=== PATIENT | male | born 1990 | race Caucasian/White ===

== ENCOUNTER 2018-03-10 19:27 | Emergency (ER) | payer BC, OTHER ==
[2018-03-10] MEDS ORDERED: KETOROLAC 30 MG/ML INJ ONE (20:06)
--- NOTE | 2018-03-10 20:08 | ER ---
Nurse's Notes [facility] Name: Bran Low Age: 27 yrs Sex: Male : 1990 Arrival Date: 03/10/2018 Time: 19:29 Bed 8 Private MD: Diagnosis: Acute lumbar strain Presentation: 03/10 19:38 Presenting complaint: Patient states: he was laying on the bed with his son and his son aa1 started to fall and he twisted his back trying to catch him. C/O low back pain in the center of his lumbar area. Reports pulling his back 2 months prior and believes he re-injured it. Reports the pain is so intense he can't walk. Transition of care: patient was not received from another setting of care. Onset of symptoms was March 10, 2018. Risk Assessment: Do you want to hurt yourself or someone else? Patient reports no desire to harm self or others. Initial Sepsis Screen: Does the patient meet any 2 criteria? HR > 90 bpm. Does the patient have a suspected source of infection? No. Patient's initial sepsis screen is negative. Care prior to arrival: None. 19:38 Method Of Arrival: Wheelchair aa1 19:38 Acuity: CHRISTOS 3 aa1 Historical: - Allergies: 19:44 No Known Allergies; aa1 - Home Meds: 19:44 None [Active]; aa1 - PMHx: 19:44 None; aa1 - PSHx: 19:44 None; aa1 - Immunization history:: Last tetanus immunization: up to date 2016. - Social history:: Smoking status: Patient/guardian denies using tobacco. - Ebola Screening: : No symptoms or risks identified at this time. Screenin:45 Abuse screen: Denies threats or abuse. Denies injuries from another. Nutritional aa1 screening: No deficits noted. Tuberculosis screening: No symptoms or risk factors identified. Fall Risk None identified. Assessment: 19:45 General: Appears in no apparent distress. uncomfortable, Behavior is calm, cooperative, aa1 appropriate for age. Pain: Complains of pain in lumbar area Pain does not radiate. Pain currently is 7 out of 10 on a pain scale. Quality of pain is described as sharp, Pain began suddenly. Neuro: Level of Consciousness is awake, alert, obeys commands, Oriented to person, place, time, situation. Respiratory: Airway is patent Respiratory effort is even, unlabored, Respiratory pattern is regular, symmetrical. GI: No signs and/or symptoms were reported involving the gastrointestinal system. : No signs and/or symptoms were reported regarding the genitourinary system. EENT: No signs and/or symptoms were reported regarding the EENT system. Derm: Skin is intact, is healthy with good turgor, Skin is pink, warm \T\ dry. Musculoskeletal: Circulation, motion, and sensation intact. Capillary refill < 3 seconds, Range of motion: intact in all extremities. 20:05 Reassessment: Patient appears in no apparent distress at this time. Patient is alert, aa1 oriented x 3, equal unlabored respirations, skin warm/dry/pink. Pt for d/c. Will d/c once shot time complete. 20:15 Reassessment: PT D/C HOME AMBULATORY WITH FAMILY, DX WITH ACUTE LUMBAR STRAIN. bp Vital Signs: 19:44 BP 168 / 108; Pulse 101; Resp 20; Temp 98.5; Pulse Ox 99% on R/A; Weight 117.93 kg; aa1 Height 5 ft. 11 in. (180.34 cm); Pain 7/10; 20:16 BP 171 / 85; Pulse 100; Resp 14; Pulse Ox 100% ; bp 19:44 Body Mass Index 36.26 (117.93 kg, 180.34 cm) aa1 ED Course: 19:29 Patient arrived in ED. al2 19:38 Tiffany Roche, JOANNE is Primary Nurse. aa1 19:39 Rahul Arthur MD is Attending Physician. pkl 19:43 Triage completed. aa1 19:44 Arm band placed on right wrist. Patient placed in an exam room, on a stretcher. aa1 19:45 Patient has correct armband on for positive identification. Bed in low position. Call aa1 light in reach. Pulse ox on. NIBP on. 20:02 Andrea Alford MD is Referral Physician. pkl 20:17 No provider procedures requiring assistance completed. Patient did not have IV access bp during this emergency room visit. Administered Medications: 20:05 Drug: TORadol 60 mg Route: IM; Site: right deltoid; aa1 20:15 Follow up: Response: Pain is decreased bp Outcome: 20:03 Discharge ordered by . pkl 20:17 Discharged to home ambulatory, with family. bp 20:17 Condition: stable 20:17 Discharge instructions given to patient, Instructed on discharge instructions, follow up and referral plans. medication usage, Demonstrated understanding of instructions, follow-up care, medications, Prescriptions given X 2. 20:17 Patient left the ED. bp Signatures: Tiffany Roche RN RN aa1 Rahul Arthur MD MD pkl Peltier, Brian, RN RN bp Love, Angelica al2
--- NOTE | 2018-03-10 20:08 | EDPHYS ---
Physician Documentation [facility] Name: Bran Low Age: 27 yrs Sex: Male : 1990 Arrival Date: 03/10/2018 Time: 19:29 Bed 8 Private MD: ED Physician Rahul Arthur HPI: 03/10 19:56 This 27 yrs old Male presents to ER via Wheelchair with complaints of Back pkl Pain. 19:56 The patient presents with pain that is acute. The symptoms are located in the low back. pkl Onset: The symptoms/episode began/occurred just prior to arrival, 1 hour(s) ago. The pain does not radiate. Associated signs and symptoms: The patient has no apparent associated signs or symptoms. The problem was sustained Twisted his back trying to catch his son from falling. Historical: - Allergies: 19:44 No Known Allergies; aa1 - Home Meds: 19:44 None [Active]; aa1 - PMHx: 19:44 None; aa1 - PSHx: 19:44 None; aa1 - Immunization history:: Last tetanus immunization: up to date 2017. - Social history:: Smoking status: Patient/guardian denies using tobacco. - Ebola Screening: : No symptoms or risks identified at this time. ROS: 19:56 Eyes: Negative for injury, pain, redness, and discharge, ENT: Negative for injury, pkl pain, and discharge, Neck: Negative for injury, pain, and swelling, Cardiovascular: Negative for chest pain, palpitations, and edema, Respiratory: Negative for shortness of breath, cough, wheezing, and pleuritic chest pain, Abdomen/GI: Negative for abdominal pain, nausea, vomiting, diarrhea, and constipation. 19:56 Back: Positive for pain at rest, of the lower back. 19:56 : Negative for urinary symptoms. 19:56 MS/extremity: Negative for acute changes. 19:56 Skin: Negative for rash. 19:56 Neuro: Negative for altered mental status. Exam: 19:56 Head/Face: Normocephalic, atraumatic. Eyes: Pupils equal round and reactive to light, pkl extra-ocular motions intact. Lids and lashes normal. Conjunctiva and sclera are non-icteric and not injected. Cornea within normal limits. Periorbital areas with no swelling, redness, or edema. ENT: Nares patent. No nasal discharge, no septal abnormalities noted. Tympanic membranes are normal and external auditory canals are clear. Oropharynx with no redness, swelling, or masses, exudates, or evidence of obstruction, uvula midline. Mucous membranes moist. Neck: Trachea midline, no thyromegaly or masses palpated, and no cervical lymphadenopathy. Supple, full range of motion without nuchal rigidity, or vertebral point tenderness. No Meningismus. Chest/axilla: Normal chest wall appearance and motion. Nontender with no deformity. No lesions are appreciated. Cardiovascular: Regular rate and rhythm with a normal S1 and S2. No gallops, murmurs, or rubs. Normal PMI, no JVD. No pulse deficits. Respiratory: Lungs have equal breath sounds bilaterally, clear to auscultation and percussion. No rales, rhonchi or wheezes noted. No increased work of breathing, no retractions or nasal flaring. Abdomen/GI: Soft, non-tender, with normal bowel sounds. No distension or tympany. No guarding or rebound. No evidence of tenderness throughout. 19:56 Back: pain, that is moderate, of the lower back, Straight leg raises: of both lower extremities does not illicit pain. 19:56 Musculoskeletal/extremity: Exam is negative for acute changes. 19:56 Skin: Exam negative for rash. 19:56 Neuro: Orientation: is normal, Mentation: is normal, Cranial nerves: grossly normal, Motor: is normal. Vital Signs: 19:44 BP 168 / 108; Pulse 101; Resp 20; Temp 98.5; Pulse Ox 99% on R/A; Weight 117.93 kg; aa1 Height 5 ft. 11 in. (180.34 cm); Pain 7/10; 20:16 BP 171 / 85; Pulse 100; Resp 14; Pulse Ox 100% ; bp 19:44 Body Mass Index 36.26 (117.93 kg, 180.34 cm) aa1 MDM: 19:39 Patient medically screened. pkl 20:00 Data reviewed: vital signs, nurses notes. ED course: Advised MRI lumbar spines if pkl symptoms not better. Administered Medications: 20:05 Drug: TORadol 60 mg Route: IM; Site: right deltoid; aa1 20:15 Follow up: Response: Pain is decreased bp Disposition: 03/10/18 20:03 Discharged to Home. Impression: Acute lumbar strain. - Condition is Stable. - Prescriptions for Cyclobenzaprine 10 mg Oral Tablet - take 1 tablet by ORAL route every 8 hours As needed; 30 tablet. Diclofenac Sodium 75 mg Oral Tablet Sustained Release - take 1 tablet by ORAL route 2 times per day; 30 tablet. - Medication Reconciliation Form, Thank You Letter, Antibiotic Education, Prescription Opioid Use form. - Follow up: Andrea Alford MD; When: 2 - 3 days; Reason: Re-evaluation by your physician. - Problem is new. - Symptoms have improved. Signatures: Tiffany Roche RN RN aa1 Rahul Arthur MD MD pkl Sudarshan Campos RN RN bp Corrections: (The following items were deleted from the chart) 20:17 20:03 03/10/2018 20:03 Discharged to Home. Impression: Acute lumbar strain. Condition bp is Stable. Forms are Medication Reconciliation Form, Thank You Letter, Antibiotic Education, Prescription Opioid Use. Follow up: Andrea Alford; When: 2 - 3 days; Reason: Re-evaluation by your physician. Problem is new. Symptoms have improved. pkl
== END 2018-03-10 20:17 | disposition home or self-care (01) ==
LOC: ER 19:27
DX: S39.012A Strain of muscle, fascia and tendon of lower back, initial encounter (principal); W50.2XXA Accidental twist by another person, initial encounter; Y92.003 Bedroom of unspecified non-institutional (private) residence as the place of occurrence of the external cause
CPT/HCPCS: 96372; 99283